=== PATIENT | male | born 1985 | race Caucasian/White ===

== ENCOUNTER 2017-02-08 17:00 | Emergency (ER) | payer OTHER | END 2017-02-08 17:50 | disposition home or self-care (01) | LOC: ER 17:00 | DX: S20.211A Contusion of right front wall of thorax, initial encounter (principal); J06.9 Acute upper respiratory infection, unspecified; F17.210 Nicotine dependence, cigarettes, uncomplicated; J45.909 Unspecified asthma, uncomplicated; Z98.890 Other specified postprocedural states; Z88.5 Allergy status to narcotic agent; W18.30XA Fall on same level, unspecified, initial encounter ==